=== PATIENT | female | born 1990 | race Caucasian/White ===

== ENCOUNTER 2017-04-01 11:52 | Emergency (ER) | payer OTHER ==
[~2017-04-01] VITALS: Ht 160 cm; Wt 81.8 kg
[2017-04-01 11:52] VITALS: BP 147/97
[2017-04-01] MEDS ORDERED: GABA-282 PO (13:54)
[2017-04-01] MEDS ORDERED: CARB200C5 PO (13:54)
[2017-04-01] MEDS ORDERED: PRED20TA PO (13:54)
== END 2017-04-01 14:05 | disposition home or self-care (01) ==
LOC: M ED 11:52
DX: G50.0 Trigeminal neuralgia (principal); Z88.1 Allergy status to other antibiotic agents; F17.200 Nicotine dependence, unspecified, uncomplicated

== ENCOUNTER 2018-04-01 15:49 | Emergency (ER) | payer OTHER | END 2018-04-01 18:10 | disposition home or self-care (01) | LOC: M ED 15:49 | DX: L02.01 Cutaneous abscess of face (principal); F17.200 Nicotine dependence, unspecified, uncomplicated; Z88.1 Allergy status to other antibiotic agents | CPT/HCPCS: 99283 ==

== ENCOUNTER → 2018-05-10 | Outpatient (REF) | payer OTHER ==
[2018-05-15 14:13] LABS: HPV HYBRID CAPTURE II Negative (Negative)
== END ==
LOC: M SFHCWAGY 13:18
DX: Z12.4 Encounter for screening for malignant neoplasm of cervix (principal); Z98.890 Other specified postprocedural states

== ENCOUNTER → 2019-03-13 | Outpatient (CLI) | payer OTHER ==
[~2019-03-13] MED LIST: BACT800T5 PO; CARB200C4 PO; GABA-843 PO; KEFL500C17 PO; PRED20TA PO
[2019-03-13 17:56] LABS: BASO % 0.3 % (0.0-1.0); EOS # 0.2 10^3/uL (0.0-0.50); HEMOGLOBIN 12.7 g/dl (12.0-15.5); LYMPH % 29.2 % (24.0-44.0); MEAN CORPUSCULAR HEMOGLOBIN 30.8 pg (27.0-33.0); MEAN CORPUSCULAR HGB CONC 34.3 g/dl (32.0-36.5); MEAN CORPUSCULAR VOLUME 89.8 fl (80.0-96.0); MONO # 0.8 10^3/uL (0.0-0.8); MONO % 7.2 % (0.0-5.0); NEUTROPHILS # 6.3 10^3/uL (1.8-7.7); NEUTROPHILS % 60.9 % (36.0-66.0); PLATELET COUNT, AUTOMATED 255 10^3/uL (150-450); RED BLOOD COUNT 4.12 10^6/uL (4.00-5.40); WHITE BLOOD COUNT 10.4 10^3/uL (4.0-10.0)
[2019-03-13 19:53] LABS: CHLAMYDIA DNA AMPLIFICATION NEGATIVE (NEGATIVE); GC DNA AMPLIFICATION NEGATIVE (NEGATIVE)
[2019-03-14 10:30] LABS: HEPATITIS C VIRUS ABY INDEX 0.1 INDEX (<0.8); HIV 1&2 SCREEN CENTAUR NEGATIVE (NEGATIVE); RUBELLA IgG QUALITATIVE IMMUNE (IMMUNE)
== END ==
LOC: M SMT 14:35
PROVIDERS: ATTEND Advanced Practice Midwife
DX: Z34.00 Encounter for supervision of normal first pregnancy, unspecified trimester (principal); Z3A.09 9 weeks gestation of pregnancy

== ENCOUNTER → 2019-05-16 | Outpatient (CLI) | payer OTHER ==
--- NOTE | 2019-05-16 16:02 | REP ---
Obstetric ultrasound for anatomy: There is a single intrauterine gestation. position is variable. There is motion and cardiac activity. The heart rate is 147 beats per minute. The placenta was fundal. There is no previa or abruptio. The placenta is grade zero. The amniotic fluid volume subjectively is normal. The cervix measures 3.2 cm length. Gestational age by today's ultrasound is 19 weeks 1 day/VIOLETA 10/09/2019. Gestational age by LMP is 18 weeks 2 days/VIOLETA 10/15/2019. weight is 261 grams/0 pounds, 9 ounces. This is the 60th percentile for 18 weeks 2 days. The following anatomic structures are identified and are unremarkable: Cranium, choroid plexus, cavum septum pellucidum, cerebellum, upper lip, facial profile, four-chamber heart, cardiac right and left ventricular outflow tracts, diaphragm, stomach, cord insertion, three-vessel cord, kidneys, bladder and lower and upper extremities. The spine is not optimally demonstrated because of position. A followup study dedicated to this structure might be considered. On the four-chamber view of the heart, there is an echogenic focus within the cardiac left ventricle. This is likely an artifact from the chorda tendineae. Electronically Signed by Claudy Hernandez MD 05/16/2019 03:53 P
== END ==
LOC: M RAD 13:12
PROVIDERS: ATTEND Advanced Practice Midwife
DX: Z34.82 Encounter for supervision of other normal pregnancy, second trimester (principal)

== ENCOUNTER → 2019-06-30 | Outpatient (CLI) | payer OTHER ==
--- NOTE | 2019-07-01 09:01 | REP ---
OB ULTRASOUND: Real-time sonographic evaluation of the gravid uterus is performed utilizing transabdominal and endovaginal technique. There is a single living intrauterine gestation. Estimated gestational age is 24 weeks 5 days, EDC 10/15/2019. Today's measurements indicate appropriate growth. Biometry and Growth: BPD 63 mm - 25 weeks 5 days, 70th percentile HC 227 mm = 24 weeks 5 days, 51st percentile AC 219 mm = 26 weeks 3 days, 84th percentile FL 47 mm = 25 weeks 4 days, 69th percentile HC/AC ratio 1.04 within normal range. Estimated weight 867 grams, 79th percentile. SEEN/GROSSLY UNREMARKABLE Lateral ventricles Yes Posterior fossa Yes Upper lip Yes Four-chamber heart Yes Echogenic focus in the left ventricle likely related to cordae tendinea. LVOT Yes RVOT Yes Stomach Yes Cord insertion Yes Three vessel cord Yes Kidneys Yes Bladder Yes Spine Yes Cervical length: Cervix is closed and measures 3.7 cm in length. heart rate: 124 beats per minute. position: Oblique, head toward the maternal right side. Placenta: Posterior and fundal and grade 0 with no previa or abruption. Amniotic fluid: Within normal limits. Electronically Signed by Claudy Phelan MD 07/02/2019 10:26 A
== END ==
LOC: M RAD 15:25
PROVIDERS: ATTEND Advanced Practice Midwife
DX: Z34.82 Encounter for supervision of other normal pregnancy, second trimester (principal)

== ENCOUNTER → 2019-07-14 | Outpatient (CLI) | payer OTHER ==
[2019-07-14 11:25] LABS: BASO % 0.4 % (0.0-1.0); EOS # 0.2 10^3/uL (0.0-0.5); HEMATOCRIT 33.9 % (36.0-47.0); HEMOGLOBIN 11.4 g/dl (12.0-15.5); LYMPH # 2.3 10^3/uL (1.5-5.0); LYMPH % 22.6 % (24.0-44.0); MEAN CORPUSCULAR HEMOGLOBIN 30.8 pg (27.0-33.0); MEAN CORPUSCULAR HGB CONC 33.6 g/dl (32.0-36.5); MEAN CORPUSCULAR VOLUME 91.6 fl (80.0-96.0); MONO # 0.6 10^3/uL (0.0-0.8); MONO % 5.7 % (0.0-5.0); NEUTROPHILS % 68.7 % (36.0-66.0); PLATELET COUNT, AUTOMATED 244 10^3/uL (150-450); WHITE BLOOD COUNT 10.1 10^3/uL (4.0-10.0)
== END ==
LOC: M LAB 09:09
PROVIDERS: ATTEND Advanced Practice Midwife
DX: Z36.89 Encounter for other specified antenatal screening (principal); Z3A.00 Weeks of gestation of pregnancy not specified

== ENCOUNTER → 2019-08-01 | Outpatient (CLI) | payer OTHER | LOC: M LAB 06:35 | PROVIDERS: ATTEND Advanced Practice Midwife | DX: Z34.93 Encounter for supervision of normal pregnancy, unspecified, third trimester (principal); Z3A.00 Weeks of gestation of pregnancy not specified ==

== ENCOUNTER → 2019-09-22 | Outpatient (REF) | payer OTHER, MEDICAID ==
[2019-09-22 17:30] LABS: ALT/SGPT 16 U/L (12-78); BILIRUBIN,TOTAL 0.2 MG/DL (0.2-1.0); CREATININE FOR GFR 0.39 MG/DL (0.55-1.30); GLOMERULAR FILTRATION RATE > 60.0 (>60); LDH LACTATE DEHYDROGENASE 137 U/L (84-246); URIC ACID 3.6 MG/DL (2.6-6.0)
[2019-09-22 17:34] LABS: HEMATOCRIT 34.9 % (36.0-47.0); HEMOGLOBIN 11.6 g/dl (12.0-15.5); MEAN CORPUSCULAR HEMOGLOBIN 30.3 pg (27.0-33.0); MEAN CORPUSCULAR HGB CONC 33.2 g/dl (32.0-36.5); MEAN CORPUSCULAR VOLUME 91.1 fl (80.0-96.0); PLATELET COUNT, AUTOMATED 210 10^3/uL (150-450); RED BLOOD COUNT 3.83 10^6/uL (4.00-5.40); WHITE BLOOD COUNT 11.6 10^3/uL (4.0-10.0)
== END ==
LOC: M PLALAB 12:01
PROVIDERS: ATTEND Obstetrics & Gynecology
DX: O13.3 Gestational [pregnancy-induced] hypertension without significant proteinuria, third trimester (principal)

== ENCOUNTER → 2019-09-30 | Outpatient (CLI) | payer OTHER ==
--- NOTE | 2019-09-30 15:20 | REP ---
Clinical: Maternal gestational hypertension Comparison: 06/30/2019 . Findings: Examination demonstrates a single live intrauterine in breech presentation. motion is identified by technologist. Placenta is noted fundal and grade I I without evidence for placenta previa or abruption. Amniotic fluid volume is normal. Cervix measures 2.2 cm in length and appears closed. No evidence for nuchal cord. Gestational age by LMP 37 weeks 6 days with VIOLETA 10/15/2019 . Gestational age by current measurements 38 weeks 5 days with VIOLETA 10/09/2019 . FHR equals 124 beats per minute. Estimated weight 3517 grams (68th percentile). Biophysical profile score: 8/8 Amniotic fluid index: 17.9 cm (7.3 - 24.0) Umbilical cord SD ratio: 2.36 (1.60 - 2.60) Impression: Single live advanced gestation in breech presentation demonstrating appropriate interval growth. Amniotic fluid volume and biophysical profile score are normal. Electronically Signed by Nicolas Marshall MD 09/30/2019 03:11 P
== END ==
LOC: M RAD 14:21
PROVIDERS: ATTEND Advanced Practice Midwife
DX: O13.3 Gestational [pregnancy-induced] hypertension without significant proteinuria, third trimester (principal)

== ENCOUNTER 2019-10-01 05:20 | Inpatient (IN) | payer OTHER ==
[~2019-10-01] VITALS: Ht 157.5 cm; Wt 86.1 kg
[2019-10-01] VITALS (8 sets, daily range): BP systolic 112–133; BP diastolic 61–87
[2019-10-01 06:31] LABS: HEMATOCRIT 32.1 % (36.0-47.0); HEMOGLOBIN 10.8 g/dl (12.0-15.5); MEAN CORPUSCULAR HEMOGLOBIN 30.3 pg (27.0-33.0); MEAN CORPUSCULAR HGB CONC 33.6 g/dl (32.0-36.5); MEAN CORPUSCULAR VOLUME 89.9 fl (80.0-96.0); PLATELET COUNT, AUTOMATED 194 10^3/uL (150-450); RED BLOOD COUNT 3.57 10^6/uL (4.00-5.40); WHITE BLOOD COUNT 8.7 10^3/uL (4.0-10.0)
[2019-10-01] MEDS ORDERED: LACTATED RINGER'S 1000 ML IV STA (06:54)
[2019-10-01] MEDS ORDERED: LR 1,000 ML IV SCH ×2 (06:54→09:45)
[2019-10-01] MEDS ORDERED: ceFAZolin SOD 2 GM in IV 1 EA IV ONE (07:00)
[2019-10-01] MEDS ORDERED: BICITRA 30ML SOLN UDC PO ONE (07:00)
[2019-10-01] MEDS ORDERED: diphenhydrAMINE INJ 50MG/ML VIAL (J1200) IV PRN (08:10)
[2019-10-01] MEDS ORDERED: ONDANSETRON 4MG/2ML VIAL (J2405) IV PRN ×2 (08:10→09:45)
[2019-10-01] MEDS ORDERED: METOCLOPRAMIDE INJ 10MG/2ML VIAL (J2765) IV PRN (08:10)
[2019-10-01] MEDS ORDERED: NALBUPHINE HCL 10 MG/ML AMP (J2300) IV PRN ×2 (08:10→09:45)
[2019-10-01] MEDS ORDERED: NALOXONE INJ 0.4 MG/1 ML VIAL (J2310) IV PRN ×2 (08:10)
[2019-10-01] MEDS ORDERED: MORPHINE PRES-FREE INJ 10 MG/10 ML VIAL (J2274) As Ordered ONE (08:28)
[2019-10-01] MEDS ORDERED: OXYTOCIN INJ 10 UNITS/ML VIAL (J2590) As Ordered ONE (08:28)
[2019-10-01] MEDS ORDERED: PHENYLephrine HCL 500 MCG/5 ML (100MCG/ML) SYRINGE (J2370) As Ordered ONE ×2 (08:29→08:35)
[2019-10-01] MEDS ORDERED: ONDANSETRON 4MG/2ML VIAL (J2405) As Ordered ONE (08:31)
[2019-10-01] MEDS ORDERED: dexameTHASONE 4 MG/ML 1ML VIAL (J1100) As Ordered ONE (08:31)
[2019-10-01] MEDS ORDERED: KETOROLAC 60 MG/2 ML VIAL (J1885) As Ordered ONE (08:31)
[2019-10-01] MEDS ORDERED: METOCLOPRAMIDE INJ 10MG/2ML VIAL (J2765) As Ordered ONE (08:44)
[2019-10-01] MEDS: DOCUSATE SODIUM 100 MG CAP PO SCH ×2 (09:00→21:27)
[2019-10-01] MEDS ORDERED: OXYTOCIN 30 UNITS IN 0.9% NaCl 500ML IV BAG (J2590) As Ordered ONE (09:22)
[2019-10-01] MEDS ORDERED: fentaNYL 100 MCG/2 ML INJECTION (J3010) IV PRN (09:45)
[2019-10-01] MEDS ORDERED: OXYTOCIN DRIP 30 UNITS in IV 1 EA IV SCH ×4 (10:56)
[2019-10-01] MEDS: LR 1,000 ML IV SCH ×2 (10:56→19:30)
[2019-10-01] MEDS ORDERED: MEASLES,MUMPS,RUBELLA VACCINE INJ (MMR-II) (90707) SC SCH (11:00)
[2019-10-01] MEDS ORDERED: PERCOCET 5MG/325MG TAB PO PRN (11:00)
[2019-10-01] MEDS ORDERED: RHOGAM 300 MCG (1500 IU) INJ (J2790) IM SCH (11:00)
[2019-10-01] MEDS ORDERED: ONDANSETRON 4 MG TAB (S0181) PO PRN (11:00)
[2019-10-01] MEDS ORDERED: METHYLERGONOVINE MALEATE 0.2 MG TAB PO PRN (11:00)
[2019-10-01] MEDS: KETOROLAC 30 MG/ML VIAL (J1885) IV SCH ×2 (16:13→21:27)
[2019-10-02 02:00] VITALS: BP 116/74
[2019-10-02] MEDS: KETOROLAC 30 MG/ML VIAL (J1885) IV SCH (02:30)
[2019-10-02] MEDS: LR 1,000 ML IV SCH (02:56)
[2019-10-02 06:15] VITALS: BP 109/63
[2019-10-02 07:27] LABS: HEMATOCRIT 27.4 % (36.0-47.0); HEMOGLOBIN 9.2 g/dl (12.0-15.5); MEAN CORPUSCULAR HEMOGLOBIN 30.8 pg (27.0-33.0); MEAN CORPUSCULAR HGB CONC 33.6 g/dl (32.0-36.5); MEAN CORPUSCULAR VOLUME 91.6 fl (80.0-96.0); PLATELET COUNT, AUTOMATED 192 10^3/uL (150-450); RED BLOOD COUNT 2.99 10^6/uL (4.00-5.40); WHITE BLOOD COUNT 11.5 10^3/uL (4.0-10.0)
[2019-10-02] MEDS: PRENATAL VITAMINS CHEWABLE TABLET PO SCH (08:20)
[2019-10-02] MEDS: DOCUSATE SODIUM 100 MG CAP PO SCH ×2 (08:20→19:56)
[2019-10-02] MEDS: PERCOCET 5MG/325MG TAB PO PRN ×2 (08:21→23:07)
[2019-10-02 10:21] VITALS: BP 120/64
[2019-10-02] MEDS: IBUPROFEN 800 MG TAB PO SCH ×2 (11:58→19:56)
[2019-10-02 14:06] VITALS: BP 113/70
[2019-10-02 16:21] VITALS: BP 127/70
[2019-10-02 22:00] VITALS: BP 136/72
[2019-10-03 02:00] VITALS: BP 112/58
[2019-10-03] MEDS ORDERED: PERCOCET PO (05:11)
[2019-10-03] MEDS ORDERED: DOCU100C16 PO (05:11)
[2019-10-03] MEDS ORDERED: IBUP80TA PO (05:11)
[2019-10-03] MEDS ORDERED: IBUPROFEN 800 MG TAB PO SCH (08:00)
[2019-10-03] MEDS: DOCUSATE SODIUM 100 MG CAP PO SCH (08:31)
[2019-10-03] MEDS: PRENATAL VITAMINS CHEWABLE TABLET PO SCH (08:31)
== END 2019-10-03 13:30 | disposition home or self-care (01) | DRG 540 ==
LOC: M LDI 05:20 → M OBS 11:19
PROVIDERS: ADMIT Obstetrics & Gynecology; ATTEND Obstetrics & Gynecology
PROC: 10D00Z1 Extraction of Products of Conception, Low, Open Approach (ICD-10-PCS; principal; 2019-10-01 07:30)
DX: O32.1XX0 Maternal care for breech presentation, not applicable or unspecified (principal); O13.4 Gestational [pregnancy-induced] hypertension without significant proteinuria, complicating childbirth; Z3A.37 37 weeks gestation of pregnancy; Z37.0 Single live birth; O99.334 Smoking (tobacco) complicating childbirth; F17.200 Nicotine dependence, unspecified, uncomplicated; O24.429 Gestational diabetes mellitus in childbirth, unspecified control

== ENCOUNTER → 2020-09-28 | Outpatient (REF) | payer OTHER, MEDICAID ==
[~2020-09-28] MED LIST changes: +DOCU100C16 PO; +GABA-282 PO; -GABA-843 PO; +IBUP80TA PO; +PERCOCET PO
[2020-09-28 13:32] LABS: BASO # 0.1 10^3/uL (0.0-0.2); BASO % 0.6 % (0.0-1.0); EOS # 0.2 10^3/uL (0.0-0.5); EOS % 2.3 % (0.0-3.0); HEMATOCRIT 41.9 % (36.0-47.0); HEMOGLOBIN 13.8 g/dl (12.0-15.5); LYMPH # 3.1 10^3/uL (1.5-5.0); LYMPH % 32.5 % (24.0-44.0); MEAN CORPUSCULAR HEMOGLOBIN 28.6 pg (27.0-33.0); MEAN CORPUSCULAR HGB CONC 32.9 g/dl (32.0-36.5); MEAN CORPUSCULAR VOLUME 86.9 fl (80.0-96.0); MONO # 0.6 10^3/uL (0.0-0.8); MONO % 6.8 % (2.0-8.0); NEUTROPHILS # 5.4 10^3/uL (1.5-8.5); NEUTROPHILS % 57.5 % (36.0-66.0); PLATELET COUNT, AUTOMATED 258 10^3/uL (150-450); RED BLOOD COUNT 4.82 10^6/uL (4.00-5.40); WHITE BLOOD COUNT 9.4 10^3/uL (4.0-10.0)
[2020-09-28 14:04] LABS: HEMOGLOBIN A1c 5.7 %
[2020-09-28 14:08] LABS: ALBUMIN 3.9 GM/DL (3.2-5.2); ALT/SGPT 27 U/L (12-78); BILIRUBIN,TOTAL 0.2 MG/DL (0.2-1.0); BLOOD UREA NITROGEN 14 MG/DL (7-18); CALCIUM LEVEL 9.1 MG/DL (8.5-10.1); CARBON DIOXIDE LEVEL 25 MEQ/L (21-32); CHLORIDE LEVEL 106 MEQ/L (98-107); CHOLESTEROL LEVEL 241 MG/DL (<200); CREATININE FOR GFR 0.66 MG/DL (0.55-1.30); FERRITIN 28 NG/ML (8-252); FREE T4 1.12 NG/DL (0.76-1.46); GLOMERULAR FILTRATION RATE > 60.0 (>60); GLUCOSE, FASTING 93 MG/DL (70-100); HDL CHOLESTEROL 29 MG/DL (>40); IRON (FE) 102 UG/DL (50-170); LDL CHOLESTEROL 148 MG/DL (<100); NON-HDL-C 212 MG/DL; PERCENT SATURATION 31.3 % (13.2-45.0); SODIUM LEVEL 139 MEQ/L (136-145); TOTAL IRON BINDING CAPACITY 326 UG/DL (250-450); TOTAL PROTEIN 7.4 GM/DL (6.4-8.2); TRIGLYCERIDES LEVEL 321 MG/DL (<150)
[2020-09-28 14:13] LABS: TOTAL 25(OH) VITAMIN D 18.5 NG/ML (30.0-100.0)
== END ==
LOC: M SFHCPLAZ 11:01
PROVIDERS: ATTEND Nurse Practitioner Family
DX: Z13.228 Encounter for screening for other metabolic disorders (principal); L65.9 Nonscarring hair loss, unspecified; Z13.220 Encounter for screening for lipoid disorders; E55.9 Vitamin D deficiency, unspecified; Z86.32 Personal history of gestational diabetes

== ENCOUNTER 2021-01-08 10:14 | Emergency (ER) | payer MEDICAID, OTHER ==
[~2021-01-08] VITALS: Ht 157.5 cm; Wt 75.9 kg
--- NOTE | 2021-01-08 11:32 | REP ---
INDICATION: L foot pain COMPARISON: 07/24/2015 TECHNIQUE: AP, lateral, bilateral oblique views. FINDINGS: No acute fracture or dislocation. Skeletal structures and joint spaces are intact, stable compared to prior exam and essentially normal. Ankle mortise appears stable. No subcutaneous emphysema or radiodense foreign body. IMPRESSION: Stable left ankle radiographs without acute pathology appreciated. <Electronically signed by Nicolas Marshall > 01/08/21 112
--- NOTE | 2021-01-08 11:36 | REP ---
INDICATION: L foot pain COMPARISON: None. TECHNIQUE: AP, lateral, bilateral oblique views left foot. FINDINGS: The osseous structures and joint spaces are intact and normal. There is no evidence for acute fracture or dislocation. Surrounding soft tissues are unremarkable. No subcutaneous emphysema or radiodense foreign body. IMPRESSION: No obvious acute pathology. No acute fracture or dislocation. <Electronically signed by Nicolas Marshall > 01/08/21 [id number]
[2021-01-08 12:40] VITALS: BP 128/81
== END 2021-01-08 12:41 | disposition home or self-care (01) ==
LOC: M ED 10:14
DX: S93.602A Unspecified sprain of left foot, initial encounter (principal); X58.XXXA Exposure to other specified factors, initial encounter; Y92.9 Unspecified place or not applicable; Y93.9 Activity, unspecified; Y99.9 Unspecified external cause status; Z88.1 Allergy status to other antibiotic agents

== ENCOUNTER → 2022-06-22 | Outpatient (REF) | payer OTHER, MEDICAID | LOC: M SFHCWAGY 13:20 | PROVIDERS: ATTEND Specialist | DX: Z01.419 Encounter for gynecological examination (general) (routine) without abnormal findings (principal); Z12.4 Encounter for screening for malignant neoplasm of cervix ==

== ENCOUNTER → 2022-11-06 | Outpatient (REF) | payer OTHER, MEDICAID | LOC: M SFHCWAGY 12:58 | PROVIDERS: ATTEND Specialist | DX: Z01.419 Encounter for gynecological examination (general) (routine) without abnormal findings (principal); R87.613 High grade squamous intraepithelial lesion on cytologic smear of cervix (HGSIL) ==

== ENCOUNTER → 2023-01-22 | Outpatient (REF) | payer OTHER, MEDICAID | LOC: M SFHCWAGY 17:35 | PROVIDERS: ATTEND Specialist | DX: R87.613 High grade squamous intraepithelial lesion on cytologic smear of cervix (HGSIL) (principal) ==

== ENCOUNTER → 2023-04-03 | Outpatient (REF) | payer OTHER, MEDICAID | LOC: M SFHCWAGY 18:38 | PROVIDERS: ATTEND Specialist | DX: N87.1 Moderate cervical dysplasia (principal) ==

== ENCOUNTER 2023-05-26 21:37 | Emergency (ER) | payer MEDICAID, OTHER ==
[~2023-05-26] VITALS: Ht 157.5 cm; Wt 86.4 kg
[2023-05-26 21:37] VITALS: BP 146/94; TEMP 97.6; O2SAT 99
== END 2023-05-27 02:33 | disposition left against medical advice (07) ==
LOC: M ED 21:37
DX: Z53.21 Procedure and treatment not carried out due to patient leaving prior to being seen by health care provider (principal)

== ENCOUNTER → 2025-02-10 | Outpatient (REF) | payer OTHER ==
[~2025-02-10] MED LIST changes: +GABA-1172 PO; -GABA-282 PO
[2025-02-10 10:55] LABS: TOTAL PROTEIN,RANDOM URINE 13.3 MG/DL (0.0-14.0)
[2025-02-10 11:46] LABS: Trichomonas vaginalis (AMP) NOT DETECTED (NEGATIVE)
[2025-02-10 12:10] LABS: GC DNA AMPLIFICATION NEGATIVE (NEGATIVE)
== END ==
LOC: M SFHCWAGY 10:00
PROVIDERS: ATTEND Obstetrics & Gynecology
DX: O34.219 Maternal care for unspecified type scar from previous cesarean delivery (principal); O09.291 Supervision of pregnancy with other poor reproductive or obstetric history, first trimester; Z86.32 Personal history of gestational diabetes

== ENCOUNTER → 2025-02-12 | Outpatient (CLI) | payer OTHER | LOC: M PLALAB 15:40 | PROVIDERS: ATTEND Obstetrics & Gynecology | DX: O34.219 Maternal care for unspecified type scar from previous cesarean delivery (principal); Z13.79 Encounter for other screening for genetic and chromosomal anomalies; Z81.8 Family history of other mental and behavioral disorders; Z13.71 Encounter for nonprocreative screening for genetic disease carrier status; Z82.79 Family history of other congenital malformations, deformations and chromosomal abnormalities; Z98.890 Other specified postprocedural states; Z3A.10 10 weeks gestation of pregnancy; Z86.32 Personal history of gestational diabetes; O99.331 Smoking (tobacco) complicating pregnancy, first trimester; F17.200 Nicotine dependence, unspecified, uncomplicated ==

== ENCOUNTER → 2025-03-13 | Outpatient (CLI) | payer OTHER ==
[2025-03-13 15:54] LABS: PLATELET COUNT, AUTOMATED 242 10^3/uL (150-450)
[2025-03-13 15:59] LABS: LDH LACTATE DEHYDROGENASE 143 U/L (120-246)
[2025-03-13 16:00] LABS: ALT/SGPT 19 U/L (7.0-40); AST/SGOT 19 U/L (<34); CREATININE FOR GFR 0.39 MG/DL (0.55-1.30); GLOMERULAR FILTRATION RATE > 90.0 (>60); GLUCOSE CHALLENGE TEST 1 HOUR 134 MG/DL (LESS THAN 140)
[2025-03-13 16:13] LABS: ESTIMATED AVERAGE GLUCOSE 111.0 MG/DL (60-110)
[2025-03-13 16:32] LABS: HIV 1&2 SCREEN NEGATIVE (NEGATIVE)
[2025-03-13 16:41] LABS: HEPATITIS C VIRUS ABY INDEX < 0.02 INDEX (<0.8)
== END ==
LOC: M PLALAB 11:39
PROVIDERS: ATTEND Obstetrics & Gynecology
DX: O34.219 Maternal care for unspecified type scar from previous cesarean delivery (principal); O34.41 Maternal care for other abnormalities of cervix, first trimester; O99.331 Smoking (tobacco) complicating pregnancy, first trimester; Z86.32 Personal history of gestational diabetes; Z13.71 Encounter for nonprocreative screening for genetic disease carrier status; Z3A.10 10 weeks gestation of pregnancy

== ENCOUNTER → 2025-03-27 | Outpatient (CLI) | payer OTHER | LOC: M WHC 13:58 | PROVIDERS: ATTEND Obstetrics & Gynecology | DX: O34.42 Maternal care for other abnormalities of cervix, second trimester (principal); O34.211 Maternal care for low transverse scar from previous cesarean delivery; O09.522 Supervision of elderly multigravida, second trimester; O99.332 Smoking (tobacco) complicating pregnancy, second trimester; F17.210 Nicotine dependence, cigarettes, uncomplicated; Z3A.16 16 weeks gestation of pregnancy; Z98.890 Other specified postprocedural states; Z85.79 Personal history of other malignant neoplasms of lymphoid, hematopoietic and related tissues ==

== ENCOUNTER → 2025-04-28 | Outpatient (CLI) | payer OTHER | LOC: M WHC 13:47 | PROVIDERS: ATTEND Obstetrics & Gynecology | DX: O34.211 Maternal care for low transverse scar from previous cesarean delivery (principal); O32.1XX0 Maternal care for breech presentation, not applicable or unspecified; Z3A.22 22 weeks gestation of pregnancy ==

== ENCOUNTER → 2025-06-04 | Outpatient (CLI) | payer OTHER ==
[2025-06-04 18:01] LABS: PLATELET COUNT, AUTOMATED 240 10^3/uL (150-450)
[2025-06-04 18:21] LABS: TOTAL PROTEIN,RANDOM URINE 32.9 MG/DL (0.0-14.0)
[2025-06-04 18:27] LABS: LDH LACTATE DEHYDROGENASE 138 U/L (120-246)
[2025-06-04 18:28] LABS: ALT/SGPT 11 U/L (7.0-40); AST/SGOT 10 U/L (<34); CREATININE FOR GFR 0.35 MG/DL (0.55-1.30); GLOMERULAR FILTRATION RATE > 90.0 (>60); GLUCOSE CHALLENGE TEST 1 HOUR 149 MG/DL (LESS THAN 140)
[2025-06-04 18:55] LABS: HIV 1&2 SCREEN NEGATIVE (NEGATIVE)
[2025-06-04 18:57] LABS: Trichomonas vaginalis (AMP) NOT DETECTED (NEGATIVE)
[2025-06-04 19:02] LABS: HEPATITIS C VIRUS ABY INDEX < 0.02 INDEX (<0.8)
[2025-06-04 19:21] LABS: GC DNA AMPLIFICATION NEGATIVE (NEGATIVE)
== END ==
LOC: M PLALAB 15:54
PROVIDERS: ATTEND Nurse Practitioner Family
DX: Z34.80 Encounter for supervision of other normal pregnancy, unspecified trimester (principal); R03.0 Elevated blood-pressure reading, without diagnosis of hypertension

== ENCOUNTER → 2025-06-15 | Outpatient (CLI) | payer OTHER | LOC: M LAB 07:06 | PROVIDERS: ATTEND Nurse Practitioner Family | DX: R73.09 Other abnormal glucose (principal) ==

== ENCOUNTER 2025-06-18 16:59 | Emergency (ER) | payer OTHER ==
[~2025-06-18] VITALS: Ht 157.5 cm; Wt 85.5 kg
[2025-06-18 17:01] VITALS: BP 141/85; TEMP 97.7; O2SAT 97
[2025-06-18] MEDS ORDERED: ACET-907 PO (17:12)
[2025-06-18] MEDS ORDERED: ASPI81CH33 PO (17:12)
[2025-06-18] MEDS ORDERED: CEPH500C PO (18:01)
== END 2025-06-18 18:07 | disposition home or self-care (01) ==
LOC: M ED 16:59
DX: K04.7 Periapical abscess without sinus (principal); Z88.1 Allergy status to other antibiotic agents; Z79.1 Long term (current) use of non-steroidal anti-inflammatories (NSAID); Z79.2 Long term (current) use of antibiotics

== ENCOUNTER → 2025-06-22 | Outpatient (CLI) | payer OTHER ==
[~2025-06-22] MED LIST changes: +ACET-907 PO; +ASPI81CH33 PO; +CEPH500C PO
[2025-06-22 15:39] LABS: PLATELET COUNT, AUTOMATED 228 10^3/uL (150-450)
[2025-06-22 15:41] LABS: LDH LACTATE DEHYDROGENASE 138 U/L (120-246)
[2025-06-22 15:43] LABS: ALT/SGPT 11 U/L (7.0-40); AST/SGOT 12 U/L (<34); CREATININE FOR GFR 0.39 MG/DL (0.55-1.30); GLOMERULAR FILTRATION RATE > 90.0 (>60)
[2025-06-22 16:09] LABS: TOTAL PROTEIN,RANDOM URINE 19.7 MG/DL (0.0-14.0)
== END ==
LOC: M PLALAB 12:36
PROVIDERS: ATTEND Nurse Practitioner Family
DX: O13.3 Gestational [pregnancy-induced] hypertension without significant proteinuria, third trimester (principal); Z3A.00 Weeks of gestation of pregnancy not specified

== ENCOUNTER → 2025-06-24 | Outpatient (CLI) | payer OTHER | LOC: M WHC 10:19 | PROVIDERS: ATTEND Nurse Practitioner Family | DX: Z34.83 Encounter for supervision of other normal pregnancy, third trimester (principal); Z3A.31 31 weeks gestation of pregnancy ==

== ENCOUNTER → 2025-07-07 | Outpatient (CLI) | payer OTHER ==
[2025-07-07 13:53] LABS: PLATELET COUNT, AUTOMATED 220 10^3/uL (150-450)
[2025-07-07 13:57] LABS: LDH LACTATE DEHYDROGENASE 155 U/L (120-246)
[2025-07-07 13:58] LABS: ALT/SGPT 11 U/L (7.0-40); AST/SGOT 11 U/L (<34); CREATININE FOR GFR 0.40 MG/DL (0.55-1.30); GLOMERULAR FILTRATION RATE > 90.0 (>60)
[2025-07-07 14:03] LABS: TOTAL PROTEIN,RANDOM URINE 20.9 MG/DL (0.0-14.0)
== END ==
LOC: M PLALAB 09:29
PROVIDERS: ATTEND Nurse Practitioner Family
DX: O14.93 Unspecified pre-eclampsia, third trimester (principal); Z3A.00 Weeks of gestation of pregnancy not specified

== ENCOUNTER 2025-07-17 14:06 | Outpatient (CLI) | payer OTHER ==
[~2025-07-17] VITALS: Ht 157.5 cm; Wt 87.5 kg
[2025-07-17] MEDS ORDERED: ACET-897 PO (14:26)
[2025-07-17] MEDS ORDERED: PRENTAB9 PO (14:26)
[2025-07-17 14:28] VITALS: BP 135/85
[2025-07-17] MEDS ORDERED: HOME MED LIST COMPLETE! XX SCH (14:30)
[2025-07-17 14:44] VITALS: O2SAT 98
== END 2025-07-17 15:12 | disposition home or self-care (01) ==
LOC: M LDO 14:06
PROVIDERS: ATTEND Advanced Practice Midwife
DX: O36.8130 Decreased fetal movements, third trimester, not applicable or unspecified (principal); O14.93 Unspecified pre-eclampsia, third trimester; O09.513 Supervision of elderly primigravida, third trimester; O34.219 Maternal care for unspecified type scar from previous cesarean delivery; Z86.32 Personal history of gestational diabetes; Z3A.32 32 weeks gestation of pregnancy
CPT/HCPCS: 59025; G0463

== ENCOUNTER → 2025-07-24 | Outpatient (CLI) | payer OTHER ==
[~2025-07-24] MED LIST changes: +ACET-897 PO; +PRENTAB9 PO
[2025-07-24 15:53] LABS: PLATELET COUNT, AUTOMATED 214 10^3/uL (150-450)
[2025-07-24 15:57] LABS: LDH LACTATE DEHYDROGENASE 140 U/L (120-246)
[2025-07-24 15:58] LABS: ALT/SGPT 10 U/L (7.0-40); AST/SGOT 12 U/L (<34); CREATININE FOR GFR 0.41 MG/DL (0.55-1.30); GLOMERULAR FILTRATION RATE > 90.0 (>60)
[2025-07-24 16:06] LABS: TOTAL PROTEIN,RANDOM URINE 35.8 MG/DL (0.0-14.0)
== END ==
LOC: M PLALAB 12:04
PROVIDERS: ATTEND Nurse Practitioner Family
DX: O14.93 Unspecified pre-eclampsia, third trimester (principal); Z3A.31 31 weeks gestation of pregnancy

== ENCOUNTER → 2025-07-28 | Outpatient (CLI) | payer OTHER | LOC: M RAD 10:42 | PROVIDERS: ATTEND Nurse Practitioner Family | DX: O14.93 Unspecified pre-eclampsia, third trimester (principal); Z3A.35 35 weeks gestation of pregnancy ==

== ENCOUNTER → 2025-07-30 | Outpatient (REF) | payer OTHER ==
[2025-07-30 13:23] LABS: TOTAL PROTEIN,RANDOM URINE 12.4 MG/DL (0.0-14.0)
== END ==
LOC: M SFHCWAGY 12:38
PROVIDERS: ATTEND Obstetrics & Gynecology
DX: O14.93 Unspecified pre-eclampsia, third trimester (principal)

== ENCOUNTER → 2025-08-05 | Outpatient (REF) | payer OTHER | LOC: M PLALAB 11:05 | PROVIDERS: ATTEND Nurse Practitioner Family | DX: Z34.93 Encounter for supervision of normal pregnancy, unspecified, third trimester (principal); Z3A.35 35 weeks gestation of pregnancy ==